=== PATIENT | male | born 1955 | race Caucasian/White ===

== ENCOUNTER 2020-08-04 07:00 | Day surgery (SDC) | payer BC ==
[2020-07-28 14:42] LABS: BASOPHILS % (AUTO) 0.6 % (0-1); EOSINOPHILS # (AUTO) 0.1 X10'3 (0-0.9); EOSINOPHILS % (AUTO) 1.6 % (0-6); LYMPHOCYTES # (AUTO) 1.3 X10'3 (1.1-4.8); LYMPHOCYTES % (AUTO) 18.7 % (21-51); MEAN CORPUSCULAR HEMOGLOBIN 30.9 PG (27.0-31.0); MEAN PLATELET VOLUME 8.6 FL (7.4-10.4); MONOCYTES # (AUTO) 0.5 X10'3 (0-0.9); MONOCYTES % (AUTO) 7.5 % (2-12); NEUTROPHILS % (AUTO) 71.6 % (42-75); PRE OP HEMATOCRIT 44.5 % (42.0-52.0); PRE OP HEMOGLOBIN 15.1 g/dL (14.0-17.9); PRE OP PLATELET COUNT 193 X10'3 (140-440); RED BLOOD COUNT 4.89 X10'6 (4.70-6.10); RED CELL DISTRIBUTION WIDTH 14.7 % (11.5-14.5)
[2020-07-28 14:56] LABS: ALBUMIN 3.6 G/DL (3.4-5.0); ALBUMIN/GLOBULIN RATIO 1.1 (1.1-1.5); ALKALINE PHOSPHATASE 115 IU/L (46-116); BLOOD UREA NITROGEN 13 MG/DL (7-18); BUN/CREATININE RATIO 13.7 (5.4-32.0); CHLORIDE 108 MMOL/L (99-107); CREATININE 0.95 MG/DL (0.60-1.10); PRE OP ANION GAP 7 (8-16); PRE OP AST 35 U/L (10-37); PRE OP BILIRUB, TOTAL 0.5 MG/DL (0.0-1.0); PRE OP GLUCOSE 130 MG/DL (70-104); PRE OP POTASSIUM 3.6 MMOL/L (3.4-5.1); PRE OP SODIUM 143 MMOL/L (135-145); TOTAL CARBON DIOXIDE 27.6 MMOL/L (24-32); eGFR 79 ML/MIN
[2020-07-28 14:58] LABS: PRE OP ALT 94 U/L (30-65)
[~2020-08-04] VITALS: Ht 175.3 cm; Wt 111.0 kg
[~2020-08-04 07:00] MED LIST: ALLO300T2 PO; ATOR40TA71 PO; CLOP75TA33 PO; DOCUMENT DATE & TIME OF BETA-BLOCKER PO ONE; FLO0.4C PO; HYDR25TA4 PO; LOSA100T57 PO; METO50CA PO; cefazolin/dext.iso 2gm/100ml IV ONE; famotidine 20mg tablet PO ONE; ringers solution, lacted 1,000 ML IV SCH
[2020-08-04] MEDS ORDERED: LIDOcaine 1% 30ml preserv. free vial ONE (07:15)
[2020-08-04 07:38] VITALS: BP 145/84
[2020-08-04] MEDS ORDERED: fentaNYL/PF 50MCG/1 ML 2ML syringe ONE (09:04)
[2020-08-04] MEDS ORDERED: MIDAZolam 1 MG/ML 5ML VIAL ONE (09:04)
[2020-08-04] MEDS ORDERED: ketorolac trometh. 30mg/ml inj. ONE (09:05)
[2020-08-04] MEDS ORDERED: BUPIVAcaine/PF 2.5 mg/ml (0.25%) 30ml vial IJ ONE (09:28)
[2020-08-04 09:41] VITALS: BP 128/72
--- NOTE | 2020-08-04 09:41 | NUR ---
Received from OR via , accompanied by Anesthesiologist DR DELA CRUZ and report given by Anesthesiolgist. AWAKENS TO VOICE. VITALS STABLE. MOUNA PAIN. DRESSINGS DI. FINGERS WARM AND PINK.
[2020-08-04 09:51] VITALS: BP 123/64
[2020-08-04 10:01] VITALS: BP 124/60
[2020-08-04 10:11] VITALS: BP 121/57
--- NOTE | 2020-08-04 10:21 | NUR ---
AWAKE AND ORIENTED. VITALS STABLE. DRESSINGS DI. MOUNA PAIN. HOME WITH HIS AT THIS TIME.
== END 2020-08-04 10:21 | disposition home or self-care (01) ==
LOC: PAS 07:00
PROVIDERS: ATTEND Orthopaedic Surgery Hand Surgery
DX: G56.21 Lesion of ulnar nerve, right upper limb (principal); G56.01 Carpal tunnel syndrome, right upper limb; G47.30 Sleep apnea, unspecified; I25.10 Atherosclerotic heart disease of native coronary artery without angina pectoris; E66.9 Obesity, unspecified; Z68.36 Body mass index [BMI] 36.0-36.9, adult; N40.0 Benign prostatic hyperplasia without lower urinary tract symptoms; Z79.899 Other long term (current) drug therapy; Z79.01 Long term (current) use of anticoagulants; Z98.890 Other specified postprocedural states; Z87.891 Personal history of nicotine dependence; Z72.89 Other problems related to lifestyle
CPT/HCPCS: 29848; 36415; 64718; 80053; 82948; 85025; 93005; J1885; J2001; J2250; J3010; J3490; A4215; A6449; J7120

== ENCOUNTER 2023-07-20 18:04 | Inpatient (IN) | payer BC ==
[~2023-07-20] VITALS: Ht 172.7 cm; Wt 109.1 kg
[~2023-07-20 18:04] MED LIST changes: -DOCUMENT DATE & TIME OF BETA-BLOCKER PO ONE; -LOSA100T57 PO; +LOSA100T58 PO; -cefazolin/dext.iso 2gm/100ml IV ONE; -famotidine 20mg tablet PO ONE; -ringers solution, lacted 1,000 ML IV SCH
[2023-07-20 19:14] LABS: BASOPHILS % (AUTO) 0.4 % (0-1); EOSINOPHILS # (AUTO) 0.1 X10'3 (0-0.9); EOSINOPHILS % (AUTO) 1.5 % (0-6); LYMPHOCYTES # (AUTO) 1.3 X10'3 (1.1-4.8); LYMPHOCYTES % (AUTO) 17.2 % (21-51); MEAN CORPUSCULAR HEMOGLOBIN 30.4 PG (27.0-31.0); MEAN CORPUSCULAR HGB CONC 34.2 g/dL (33.0-36.5); MEAN CORPUSCULAR VOLUME 88.9 FL (78-98); MEAN PLATELET VOLUME 8.3 FL (7.4-10.4); MONOCYTES # (AUTO) 0.7 X10'3 (0-0.9); MONOCYTES % (AUTO) 8.7 % (2-12); NEUTROPHILS # (AUTO) 5.5 X10'3 (1.8-7.7); NEUTROPHILS % (AUTO) 72.2 % (42-75); PLATELET COUNT 185 X10'3 (140-440); RED BLOOD COUNT 4.95 X10'6 (4.70-6.10); RED CELL DISTRIBUTION WIDTH 14.6 % (11.5-14.5); WHITE BLOOD COUNT 7.6 X10'3 (4.5-11.0)
[2023-07-20 19:24] LABS: ALBUMIN 3.9 G/DL (3.4-5.0); ANION GAP 10 (8-16); BLOOD UREA NITROGEN 16 MG/DL (7-18); BUN/CREATININE RATIO 13.3 (10.0-20.0); CALCIUM 9.7 MG/DL (8.5-10.1); CHLORIDE 98 MMOL/L (99-107); GLUCOSE 165 MG/DL (70-104); POTASSIUM 3.4 MMOL/L (3.5-5.1); PRO BRAIN NATRIURETIC PEPTIDE 235 PG/ML (0-125); SODIUM 137 MMOL/L (135-145); TOTAL CARBON DIOXIDE 28.7 MMOL/L (24-32); eCRCL 55 ML/MIN; eGFR 60 ML/MIN
[2023-07-20] MEDS: nitroGLYCERIN 0.4mg/hour patch TD ONE (19:35)
[2023-07-20] MEDS: aspirin 81mg tab.chew PO ONE (19:35)
[2023-07-20 19:53] LABS: D-DIMER 0.39 MG/L FEU (0-0.50)
[2023-07-20] MEDS ORDERED: PERFLUTREN PROTEIN-A MICROSPHR (Optison) 0.22 MG/ML 3ML VIAL IV ONE (21:05)
[2023-07-20] MEDS ORDERED: magnesium 2GM in 50ml NS 50 ML IV PRN (21:05)
[2023-07-20] MEDS ORDERED: potassium Cl 20 mEq SR tablet PO PRN ×2 (21:05)
[2023-07-20] MEDS ORDERED: mag hydrox/Alum hydrox/simeth 30ml oral suspension PO PRN (21:05)
[2023-07-20] MEDS ORDERED: magnesium 4gm in 100ml NS 100 ML IV PRN (21:05)
[2023-07-20] MEDS ORDERED: potassium Cl 40MEQ/1/2NS 520ml 520 ML IV PRN (21:05)
[2023-07-20] MEDS ORDERED: magnesium hydroxide 30ml (MOM) UD suspension PO PRN (21:05)
[2023-07-20] MEDS ORDERED: ondansetron/PF 4mg/2ml inj IV PRN (21:05)
[2023-07-20] MEDS ORDERED: nitroGLYCERIN 0.4mg SUBLingual tab SL PRN (21:25)
[2023-07-20] MEDS ORDERED: metoprolol tartrate 1mg/ml inj IV PRN (21:25)
[2023-07-20] MEDS ORDERED: glucagon, human recombinant 1mg kit SUBCUT PRN (21:25)
[2023-07-20] MEDS ORDERED: dextrose 50%-water 50ml dispensing syringe IV PRN ×2 (21:25)
[2023-07-20] MEDS ORDERED: aminophylline 250mg/10ml inj. IV PRN (21:25)
[2023-07-20] MEDS ORDERED: DEXTROSE 15 GM of carb/4 tabs (each vial/BOTTLE has 4 tablets) PO PRN ×2 (21:25)
[2023-07-20] MEDS: metoprolol tartrate 12.5mg (1/2 tablet) PO ONE (21:34)
[2023-07-20] MEDS: normal saline 1000ml 1,000 ML IV SCH (21:49)
[2023-07-20 22:55] VITALS: PULSE 66; RESP 18; O2SAT 96
[2023-07-21] VITALS (15 sets, daily range): BP systolic 123–170; BP diastolic 58–92; PULSE 56–89; RESP 11–26; TEMP 97.5–99.5; O2SAT 94–100
[2023-07-21 06:47] LABS: BASOPHILS % (AUTO) 0.5 % (0-1); EOSINOPHILS # (AUTO) 0.1 X10'3 (0-0.9); EOSINOPHILS % (AUTO) 2.2 % (0-6); HEMATOCRIT 40.4 % (42.0-52.0); HEMOGLOBIN 13.6 g/dl (14.0-17.9); LYMPHOCYTES # (AUTO) 1.2 X10'3 (1.1-4.8); LYMPHOCYTES % (AUTO) 18.5 % (21-51); MEAN CORPUSCULAR HGB CONC 33.7 g/dL (33.0-36.5); MEAN CORPUSCULAR VOLUME 89.3 FL (78-98); MEAN PLATELET VOLUME 8.5 FL (7.4-10.4); MONOCYTES # (AUTO) 0.6 X10'3 (0-0.9); MONOCYTES % (AUTO) 8.6 % (2-12); NEUTROPHILS # (AUTO) 4.7 X10'3 (1.8-7.7); NEUTROPHILS % (AUTO) 70.2 % (42-75); PLATELET COUNT 169 X10'3 (140-440); RED BLOOD COUNT 4.53 X10'6 (4.70-6.10); RED CELL DISTRIBUTION WIDTH 14.6 % (11.5-14.5); WHITE BLOOD COUNT 6.8 X10'3 (4.5-11.0)
[2023-07-21 06:54] LABS: ALANINE AMINOTRANSFERASE 46 U/L (12-78); ALBUMIN 3.5 G/DL (3.4-5.0); ALKALINE PHOSPHATASE 88 IU/L (46-116); ANION GAP 10 (8-16); ASPARTATE AMINO TRANSFERASE 23 U/L (10-37); BILIRUBIN,TOTAL 0.8 MG/DL (0.1-1.0); BLOOD UREA NITROGEN 17 MG/DL (7-18); BUN/CREATININE RATIO 17.3 (10.0-20.0); CALCIUM 8.7 MG/DL (8.5-10.1); CHLORIDE 99 MMOL/L (99-107); CHOL/HDL RATIO 3.3 (0.00-4.99); CHOLESTEROL 137 MG/DL (0-200); CREATININE 0.98 MG/DL (0.60-1.10); GLUCOSE 167 MG/DL (70-104); HDL CHOLESTEROL 41 MG/DL (35-60); LDL CHOLESTEROL 80 MG/DL (50-100); MAGNESIUM 1.4 MG/DL (1.5-2.4); POTASSIUM 3.5 MMOL/L (3.5-5.1); SODIUM 135 MMOL/L (135-145); TOTAL PROTEIN 6.9 G/DL (6.4-8.2); TRIGLYCERIDES 141 MG/DL (20-135); eCRCL 68 ML/MIN; eGFR 76 ML/MIN
[2023-07-21 07:35] LABS: HEMOGLOBIN A1C 6.9 % (4.5-6.2)
[2023-07-21] MEDS: K and/or MAG REPLACEMENT MC SCH (08:00)
[2023-07-21] MEDS: heparin, porcine 5000 units/ml vial SQ SCH (08:56)
[2023-07-21] MEDS: magnesium Cl slow-release 64mg tablet PO PRN (08:57)
[2023-07-21] MEDS: docusate sod 100mg capsule PO SCH (08:57)
[2023-07-21] MEDS: clopidogrel 75mg tablet PO SCH (08:57)
[2023-07-21] MEDS: aspirin 81mg, enteric-coated 1 TAB TABLET.DR PO SCH (08:58)
[2023-07-21] MEDS: atorvastatin 20mg tablet PO SCH (08:58)
[2023-07-21] MEDS: INSULIN LISPRO 100 UNIT/ML INSULN.PEN MULTI-DOSE SQ SCH (09:00)
[2023-07-21] MEDS: regadenoson 0.4mg/5ml syringe IV PRN (12:55)
[2023-07-21] MEDS: acetaminophen 325mg tablet PO PRN (15:45)
[2023-07-21] MEDS ORDERED: LOSA100T58 PO (16:47)
[2023-07-21] MEDS ORDERED: FLO0.4C PO (16:47)
[2023-07-21] MEDS ORDERED: ATOR40TA71 PO (16:47)
[2023-07-21] MEDS ORDERED: METO50CA PO (16:47)
[2023-07-21] MEDS ORDERED: NITR0.4T51 SL (16:47)
[2023-07-21] MEDS ORDERED: tamsulosin capsule PO (16:47)
[2023-07-21] MEDS ORDERED: ASPI-1071 PO (16:47)
[2023-07-21] MEDS ORDERED: HYDR25TA4 PO (16:47)
[2023-07-21] MEDS ORDERED: PANT40TA54 PO (16:55)
[2023-07-21] MEDS ORDERED: tamsulosin 0.4mg capsule PO SCH (21:00)
== END 2023-07-21 17:45 | disposition home or self-care (01) | DRG 392 ==
LOC: ER 18:04 → ED HOLD 21:05 → PCU 3S 23:39
PROVIDERS: ADMIT Internal Medicine; ATTEND Family Medicine
PROC: 4A02XM4 Measurement of Cardiac Total Activity, External Approach (ICD-10-PCS; principal; 2023-07-21)
PROC: 3E033HZ Introduction of Radioactive Substance into Peripheral Vein, Percutaneous Approach (ICD-10-PCS; 2023-07-21)
DX: K21.9 Gastro-esophageal reflux disease without esophagitis (principal); I25.110 Atherosclerotic heart disease of native coronary artery with unstable angina pectoris; R07.89 Other chest pain; I10 Essential (primary) hypertension; E11.9 Type 2 diabetes mellitus without complications; N40.0 Benign prostatic hyperplasia without lower urinary tract symptoms; E78.00 Pure hypercholesterolemia, unspecified; G47.33 Obstructive sleep apnea (adult) (pediatric); Z98.61 Coronary angioplasty status; I25.2 Old myocardial infarction; Z82.49 Family history of ischemic heart disease and other diseases of the circulatory system; Z87.891 Personal history of nicotine dependence; Z79.899 Other long term (current) drug therapy; Z81.8 Family history of other mental and behavioral disorders
CPT/HCPCS: 36415; 71045; 78452; 80048; 80053; 80061; 82948; 83036; 83735; 83880; 84484; 85025; 85379; 87081; 93005; 93017; 93306; 94760; A9500; G0378; J1644; J1815; J2785; J7030